=== PATIENT | female | born 1935 | race Caucasian/White ===

== ENCOUNTER 2016-11-18 12:50 | Emergency (ER) | payer MEDICARE ==
[~2016-11-18] VITALS: Ht 165.1 cm; Wt 86.2 kg
--- NOTE | 2016-11-18 13:56 | ED.ADGEN ---
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 Patient had a skin biopsy performed this afternoon, but her blood pressure was checked at the office was noted to be 200s over 100s, and patient was sent down to the emergency department for evaluation. Patient denies any chest pain, any shortness of breath, any headache, any weakness emesis or tingling, she is complaining of pain in the dorsal aspect of her left hand where margins were enlarged for previous skin biopsy that was shown to be malignant. Patient initially had some bleeding from this area but it is sent stopped. Patient's states that she did not take her blood pressure medications this morning, and that "I sometimes forgets to take them when exposed to". Patient's blood pressure in the emergency department is 212/96, heart rate is 88, oxygen saturation is 94-96% on room air respiratory rate is 18 and unlabored. Review of Systems Review of Systems Constitutional: Denies fever or chills. [] Eyes: Denies change in visual acuity. [] HENT: Denies nasal congestion or sore throat. [] Respiratory: Denies cough or shortness of breath. [] Cardiovascular: Denies chest pain or edema. [] GI: Denies abdominal pain, nausea, vomiting, bloody stools or diarrhea. [] : Denies dysuria. [] Musculoskeletal: Denies back pain or joint pain. [] Pain in the left hand status post skin biopsy. Integument: Denies rash. [] Neurologic: Denies headache, focal weakness or sensory changes. [] Endocrine: Denies polyuria or polydipsia. [] Lymphatic: Denies swollen glands. [] Psychiatric: Denies depression or anxiety. [] Current Medications Current Medications Current Medications Medications (Trade) Dose Ordered Sig/Alycia Start Time Stop Time Status Last Admin Dose Admin Losartan Potassium (Cozaar) 100 mg 1X ONCE 11/18/16 14:30 11/18/16 14:31 DC 11/18/16 13:55 100 MG Metoprolol Tartrate (Lopressor) 50 mg 1X ONCE 11/18/16 14:30 11/18/16 14:31 DC 11/18/16 13:56 50 MG Allergies Allergies Allergies Coded Allergies Type Severity Reaction Last Updated Verified Penicillins Allergy Intermediate itching 11/18/16 Yes Physical Exam Physical Exam Constitutional: Well developed, well nourished, no acute distress, non-toxic appearance. [] HENT: Normocephalic, atraumatic, bilateral external ears normal, oropharynx moist, no oral exudates, nose normal. [] Eyes: PERRLA, EOMI, conjunctiva normal, no discharge. [] Neck: Normal range of motion, no tenderness, supple, no stridor. [] Cardiovascular:Heart rate regular rhythm, no murmur, S1, S2, rubs or gallops. [] Lungs & Thorax: Bilateral breath sounds clear to auscultation, no wheezing, rhonchi, rales. No chest wall crepitus or tenderness. [] Abdomen: Bowel sounds normal, soft, no tenderness, no masses, no pulsatile masses. No rebound, rigidity, no guarding, [] Skin: Warm, dry, no erythema, no rash. [] Back: No tenderness, no CVA tenderness. [] Extremities: Patient with an area of ecchymosis noted, with [address] over the dorsolateral is left hand, where margins of the skin biopsy were broadened, there is no bleeding, area is clean dry and intact, no cyanosis, no clubbing, ROM intact, no edema. [] Neurologic: Alert and oriented X 3, normal motor function, normal sensory function, no focal deficits noted. [] Psychologic: Affect normal, judgement normal, mood normal. [] Current Patient Data Vital Signs Vital Signs Date Time Temp Pulse Resp B/P Pulse Ox O2 Delivery O2 Flow Rate FiO2 11/18/16 14:16 84 20 190/90 98 Room Air 11/18/16 12:54 97.9 97.9 EKG EKG ECG: Rhythm strip: Heart rate 88 bpm, sinus rhythm, no ectopy. As interpreted by me. [] Radiology/Procedures Radiology/Procedures Not indicated. [] Course & Med Decision Making Course & Med Decision Making Pertinent Labs and Imaging studies reviewed. (See chart for details) Patient states that she believes she takes amlodipine. She states that her medications are obtained at [facility] pharmacy, we did contact the pharmacy, patient is prescribed metoprolol 50 mg taken twice daily, and Benicar 40 mg once daily. Patient states that she was not aware of these medication changes, and that she is not always compliant with her medications as stated. Patient received 100 mg of losartan, as her placement for Benicar, and also 50 mg of metoprolol in the ED. Dressing was changed on her left hand, with no further bleeding noted. Patient received her medications in the ED, we had a discussion regarding the importance of taking medications as directed to prevent long-term damage to her organ systems. Patient voiced understanding, she does have her medications at home, states that she will take them as directed, and will follow -up with her primary care provider for additional evaluation as discussed. We' ll also return to the ED for concerning symptoms as discussed at bedside in the accompanying paperwork. Repeat blood pressures 190/90, heart rate 84, patient states that she is very anxious to be discharged home. She remains asymptomatic. Patient discharged home in stable condition with instructions and precautions as above. Dragon Disclaimer Dragon Disclaimer This electronic medical record was generated, in whole or in part, using a voice recognition dictation system. Departure Impression: Primary Impression: Hypertension Disposition: 01 HOME, SELF-CARE Condition: STABLE LUCRECIA VELA DO Nov 18, 2016 13:56
[2016-11-18 14:16] VITALS: BP 190/90
[2016-11-18] MEDS ORDERED: METOPROLOL TART IMMED RELEASE 50 MG TABLET. PO ONE (14:30)
[2016-11-18] MEDS ORDERED: LOSARTAN POTASSIUM 50 MG TABLET. PO ONE (14:30)
== END 2016-11-18 14:35 | disposition home or self-care (01) ==
LOC: ER 12:50
DX: I10 Essential (primary) hypertension (principal); E11.9 Type 2 diabetes mellitus without complications; E78.00 Pure hypercholesterolemia, unspecified; Z88.0 Allergy status to penicillin
CPT/HCPCS: 99283

== ENCOUNTER → 2017-02-13 | Outpatient (CLI) | payer MEDICARE ==
--- NOTE | 2017-02-13 15:23 | RAD ---
M DATE: 02/13/2017 EXAM: DIGITAL SCREEN BILAT W/CAD HISTORY: Screening. The history of left breast malignancy 7 years ago is noted. COMPARISON: 13 months earlier This study was interpreted with the benefit of Computerized Aided Detection (CAD). FINDINGS: Breast Density: FATTY The Breast Parenchyma is primarily fatty replaced. Breast parenchyma level density A.. Postoperative/therapeutic changes are noted associated with the left breast. There has been little change in the appearance of the breasts when compared to the previous exam IMPRESSION: Benign finding BI-RADS CATEGORY: 2 BENIGN FINDING(S) RECOMMENDED FOLLOW-UP: 12M 12 MONTH FOLLOW-UP PQRS compliance statement: Patient information was entered into a reminder system with a target due date 02/13/2018 for the next mammogram. Mammography is a sensitive method for finding small breast cancers, but it does not detect them all and is not a substitute for careful clinical examination. A negative mammogram does not negate a clinically suspicious finding and should not result in delay in biopsying a clinically suspicious abnormality. "Our facility is accredited by the [employer] Mammography Program."
== END | disposition home or self-care (01) ==
LOC: MAMMO 13:56
PROVIDERS: ATTEND Surgery
DX: Z12.31 Encounter for screening mammogram for malignant neoplasm of breast (principal)
CPT/HCPCS: G0202; 77067

== ENCOUNTER → 2018-02-15 | Outpatient (CLI) | payer MEDICARE | END | disposition home or self-care (01) | LOC: MAMMO 14:11 | DX: Z12.31 Encounter for screening mammogram for malignant neoplasm of breast (principal); I10 Essential (primary) hypertension; E11.9 Type 2 diabetes mellitus without complications; E78.00 Pure hypercholesterolemia, unspecified | CPT/HCPCS: 77067 ==

== ENCOUNTER → 2018-08-12 | Outpatient (CLI) | payer MEDICARE ==
--- NOTE | 2018-08-12 17:14 | KCIC ---
EXAM: AP, oblique and lateral views of the left index finger DATE: 08/12/2018 12:00 AM INDICATION: Second digit gout, pain, swelling since [place] COMPARISON: No Prior FINDINGS: Gullwing appearance of the DIP joint left index finger consistent with erosive osteoarthritis. However there is also a large associated juxta-articular erosion with high density soft tissue swelling consistent with superimposed gout. Associated flexion deformity at the DIP joint and mild extension deformity at the PIP joint left index finger. No evidence of acute fracture or dislocation. 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 Electronically signed by: Ralph White MD (08/12/2018 5:10 PM) [facility]
== END | disposition home or self-care (01) ==
LOC: KCIC 08-11 15:17
PROVIDERS: ATTEND Family Medicine Adult Medicine
DX: M10.9 Gout, unspecified (principal); M19.042 Primary osteoarthritis, left hand
CPT/HCPCS: 73140

== ENCOUNTER → 2019-03-08 | Outpatient (CLI) | payer MEDICARE ==
--- NOTE | 2019-03-09 09:34 | RAD ---
DATE: March 08, 2019 EXAM: DIGITAL SCREEN BILAT W/CAD HISTORY: History of left breast cancer treated with lumpectomy in 2010. COMPARISON: 2016 thru 2018 This study was interpreted with the benefit of Computerized Aided Detection (CAD). FINDINGS: Breast Density: SCATTERED The breast parenchyma shows scattered fibroglandular densities. Breast parenchyma level B.. Again seen are postoperative changes with scarring of the upper posterior lateral left breast. Again seen is skin thickening of the left breast which may be secondary to radiation therapy. These findings are unchanged. No newly developing breast mass or new focus of architectural distortion is seen. Scattered calcifications are seen bilaterally which are stable. No new cluster of pleomorphic microcalcifications are evident on either side. IMPRESSION: No mammographic indicators for new or recurrent malignancy. Stable postoperative changes and postradiation changes of the left breast. BI-RADS CATEGORY: 2 BENIGN FINDING RECOMMENDED FOLLOW-UP: 12M 12 MONTH FOLLOW-UP PQRS compliance statement: Patient information was entered into a reminder system with a target due date March 09, 2020 for the next mammogram. Mammography is a sensitive method for finding small breast cancers, but it does not detect them all and is not a substitute for careful clinical examination. A negative mammogram does not negate a clinically suspicious finding and should not result in delay in biopsying a clinically suspicious abnormality. "Our facility is accredited by the [employer] Mammography Program." The patient's breast density may affect the ability of mammography to detect breast cancer. There are 4 categories of breast density, A, B, C and D. Breast density A means that most of the breast tissue is replaced with adipose tissue and therefore is not dense. Breast density B means that the breast tissue is mildly dense and scattered. Breast density C means that the breast tissue is heterogeneously dense. Breast density D means that the breast tissue is very dense. Breast densities especially C and D may decrease the sensitivity of mammography to detect breast cancer. Therefore, the patient may benefit from 3-D breast mammography (3D breast tomography) as a part of their screening mammogram. Insurance may or may not pay for this additional imaging. The patient's breast density based on today's mammogram is category B.
== END | disposition home or self-care (01) ==
LOC: MAMMO 14:11
PROVIDERS: ATTEND Family Medicine
DX: Z12.31 Encounter for screening mammogram for malignant neoplasm of breast (principal); N64.89 Other specified disorders of breast
CPT/HCPCS: 77067

== ENCOUNTER 2021-04-16 19:04 | Emergency (ER) | payer MEDICARE ==
[2020-11-15 11:00] VITALS: BP 167/75
[~2021-04-16 19:04] MED LIST: CHOL500021 PO; FURO20TA3 PO; LACT1CAP6 PO; LOSA100T14 PO; LOVA20TA2 PO; METF500T16 PO; OMEP40CA7 PO; OXYB5TAB10 PO; VERA240C2 PO
== END 2021-04-16 20:00 | disposition left against medical advice (07) ==
LOC: ER 19:04
DX: K62.5 Hemorrhage of anus and rectum (principal); Z53.21 Procedure and treatment not carried out due to patient leaving prior to being seen by health care provider